=== PATIENT | female | born 1985 | race Two or more races ===

== ENCOUNTER 2017-06-10 08:00 | Emergency (ER) | payer MEDICAID ==
[~2017-06-10] VITALS: Ht 167.6 cm; Wt 108.9 kg
[2017-06-10] MEDS ORDERED: NKM (08:16)
[2017-06-10] MEDS ORDERED: Lidocaine 2% Visc 15ml soln ORAL ONE (08:45)
[2017-06-10] MEDS ORDERED: Mylanta II UD 30ml ORAL ONE (08:45)
[2017-06-10 08:59] LABS: BASOPHILS % (AUTO) 0.3 % (0.0-2.0); HEMATOCRIT 40.4 % (37.0-47.0); HEMOGLOBIN 14.1 G/DL (12.0-16.0); LYMPHOCYTES % (AUTO) 14.7 % (20.0-45.0); MEAN CORPUSCULAR VOLUME 91 FL (80-99); PLATELET COUNT 306 K/UL (150-450); RED BLOOD COUNT 4.43 M/UL (4.20-5.40); RED CELL DISTRIBUTION WIDTH 12.3 % (11.6-14.8); WHITE BLOOD COUNT 8.7 K/UL (4.8-10.8)
[2017-06-10] MEDS ORDERED: Ketorolac 30mg Inj IV ONE (09:00)
[2017-06-10 09:01] VITALS: BP 122/74
[2017-06-10 09:05] LABS: APPEARANCE,URINE CLEAR; BILIRUBIN, URINE NEGATIVE (NEGATIVE); GLUCOSE, URINE (UA) NEGATIVE (NEGATIVE); KETONES,URINE 2+ (NEGATIVE); LEUKOCYTE ESTERASE ,URINE 2+ (NEGATIVE); NITRITE,URINE NEGATIVE (NEGATIVE); PH,URINE 7 (4.5-8.0); PROTEIN,URINE 3+ (NEGATIVE); UROBILINOGEN,URINE 1 MG/DL (0.0-1.0)
[2017-06-10 09:13] LABS: ANION GAP 13 mmol/L (5-15); BLOOD UREA NITROGEN 10 mg/dL (7-18); CALCIUM 9.3 MG/DL (8.5-10.1); CARBON DIOXIDE 25 MMOL/L (21-32); CHLORIDE 103 MMOL/L (98-107); CREATININE 0.8 MG/DL (0.55-1.30); POTASSIUM 3.1 MMOL/L (3.5-5.1); SODIUM 140 MMOL/L (136-145)
[2017-06-10 09:15] LABS: ALANINE AMINOTRANSFERASE 23 U/L (12-78); ALBUMIN 3.8 G/DL (3.4-5.0); ALBUMIN/GLOBULIN RATIO 0.9 (1.0-2.7); ALKALINE PHOSPHATASE 96 U/L (46-116); ASPARTATE AMINO TRANSFERASE 10 U/L (15-37); BILIRUBIN,TOTAL 0.3 MG/DL (0.2-1.0)
[2017-06-10 09:19] LABS: COLOR,URINE YELLOW
--- NOTE | 2017-06-10 09:20 | Emergency Room Report ---
History of Present Illness General Chief Complaint: Abdominal Pain Source: Patient Present Illness HPI This patient has several complaints. The patient states that she has had some dysuria for about a week. She states that over the past few days she has developed upper back pain on both sides of her back. She states she's also had subjective fever and chills. She has had multiple episodes of nausea and vomiting this morning. She states she also has developed upper abdominal pain. She states that she hasn't had a bowel movement in 2 days and feels very "full." She states that her last menstrual period was 3 months ago. She states that she is irregular and this is typical for her. She does use condoms as a form of control. She denies chest pain or shortness of breath. She denies cough or congestion. She denies headache or neck pain. She has no other complaints. Allergies: Coded Allergies: No Known Allergies (Unverified , 06/10/17) Patient History Past Medical History: none, see triage record Past Surgical History: none Social History: Denies: smoking, alcohol use, drug use Last Menstrual Period: Three months ago - irregular Reviewed Nursing Documentation: PMH: Agreed, PSxH: Agreed Nursing Documentation-PMH Past Medical History: No Stated History Review of Systems All Other Systems: negative except mentioned in HPI Physical Exam Vital Signs Date Time Temp Pulse Resp B/P (MAP) Pulse Ox O2 Delivery O2 Flow Rate FiO2 06/10/17 08:09 84 20 127/67 99 Room Air Sp02 EP Interpretation: reviewed, normal General Appearance: no apparent distress, alert, GCS 15, non-toxic Head: normocephalic, atraumatic Eyes: bilateral eye normal inspection, bilateral eye PERRL ENT: hearing grossly normal, normal pharynx, no angioedema, normal voice Neck: full range of motion, supple/symm/no masses Respiratory: chest non-tender, lungs clear, normal breath sounds, speaking full sentences Cardiovascular #1: regular rate, rhythm, no edema Gastrointestinal: normal bowel sounds, soft, non-distended, no guarding, no rebound, tenderness - TTP in the epigastrium and RUQ. Rectal: deferred Genitourinary: CVA tenderness (R), CVA tenderness (L) Musculoskeletal: back normal, gait/station normal, normal range of motion, non- tender Neurologic: alert, oriented x3, responsive, motor strength/tone normal, sensory intact, speech normal Psychiatric: judgement/insight normal, memory normal, mood/affect normal, no suicidal/homicidal ideation Skin: normal color, no rash, warm/dry, well hydrated Medical Decision Making Diagnostic Impression: Primary Impression: Cholelithiasis ER Course This patient had several different complaints. She had bilateral flank pain concerning for pyelonephritis. She underwent a urinalysis which showed no e/o UTI. She also complained of upper abdominal pain consistent with gastritis or gallbladder disease. To further investigate this she underwent laboratory workup to include CBC, CMP and lipase which showed no acute findings. Specifically normal WBC, LFT's and lipase. She also underwent right upper quadrant ultrasound which showed cholelithasis w/o cholecystitis. The electronic systems security assessment did note sonographic Cruz sign. However, this patient had significant improvement and was nontender on repeat assessment and reexamination. I do not suspect that this patient has acute cholecystitis at this time. Although, she was educated that this could develop or progress and that she may need to return to undergo cholecystectomy. She was given a GI cocktail to include Mylanta and viscous lidocaine. She was given IV Pepcid. She was also given Toradol and morphine for pain relief. The patient had significant improvement during her ED course. Likely this patient is having biliary colic. There is no evidence of cholecystitis or choledocholithiasis. I did educate the patient that she may continue to have symptoms and end up having her gallbladder removed. She was educated on a proper low-fat diet. She was educated on followup instructions and return precautions. Laboratory Tests Test 06/10/17 08:34 White Blood Count 8.7 K/UL (4.8-10.8) Red Blood Count 4.43 M/UL (4.20-5.40) Hemoglobin 14.1 G/DL (12.0-16.0) Hematocrit 40.4 % (37.0-47.0) Mean Corpuscular Volume 91 FL (80-99) Mean Corpuscular Hemoglobin 31.9 PG (27.0-31.0) H Mean Corpuscular Hemoglobin Concent 34.9 G/DL (32.0-36.0) Red Cell Distribution Width 12.3 % (11.6-14.8) Platelet Count 306 K/UL (150-450) Mean Platelet Volume 5.5 FL (6.5-10.1) L Neutrophils (%) (Auto) 83.0 % (45.0-75.0) H Lymphocytes (%) (Auto) 14.7 % (20.0-45.0) L Monocytes (%) (Auto) 2.0 % (1.0-10.0) Eosinophils (%) (Auto) 0.0 % (0.0-3.0) Basophils (%) (Auto) 0.3 % (0.0-2.0) Urine Color Yellow Urine Appearance Clear Urine pH 7 (4.5-8.0) Urine Specific [place] 1.015 (1.005-1.035) Urine Protein 3+ (NEGATIVE) H Urine Glucose (UA) Negative (NEGATIVE) Urine Ketones 2+ (NEGATIVE) H Urine Occult Blood 5+ (NEGATIVE) H Urine Nitrite Negative (NEGATIVE) Urine Bilirubin Negative (NEGATIVE) Urine Urobilinogen 1 MG/DL (0.0-1.0) H Urine Leukocyte Esterase 2+ (NEGATIVE) H Urine RBC 5-10 /HPF (0 - 2) H Urine WBC 2-4 /HPF (0 - 2) Urine Squamous Epithelial Cells Moderate /LPF (NONE/OCC) H Urine Bacteria Few /HPF (NONE) Urine Mucus Few /LPF (NONE/OCC) H Urine HCG, Qualitative Negative Sodium Level 140 MMOL/L (136-145) Potassium Level 3.1 MMOL/L (3.5-5.1) L Chloride Level 103 MMOL/L (98-107) Carbon Dioxide Level 25 MMOL/L (21-32) Anion Gap 13 mmol/L (5-15) Blood Urea Nitrogen 10 mg/dL (7-18) Creatinine 0.8 MG/DL (0.55-1.30) Estimate Glomerular Filtration Rate > 60 mL/min (>60) Glucose Level 138 MG/DL (74-106) H Calcium Level 9.3 MG/DL (8.5-10.1) Total Bilirubin 0.3 MG/DL (0.2-1.0) Aspartate Amino Transferase (AST) 10 U/L (15-37) L Alanine Aminotransferase (ALT) 23 U/L (12-78) Alkaline Phosphatase 96 U/L (46-116) Total Protein 7.8 G/DL (6.4-8.2) Albumin 3.8 G/DL (3.4-5.0) Globulin 4.0 g/dL Albumin/Globulin Ratio 0.9 (1.0-2.7) L Lipase 105 U/L (73-393) CT/MRI/US Diagnostic Results CT/MRI/US Diagnostic Results : Imaging Test Ordered: US RUQ Impression The patient had significant improvement during her ED course. Likely this patient is having biliary colic. There is no evidence of cholecystitis or choledocholithiasis. I did educate the patient that she may continue to have symptoms and end up having her gallbladder removed. She was educated on a proper low-fat diet. She was educated on followup instructions and return precautions. Last Vital Signs Date Time Temp Pulse Resp B/P (MAP) Pulse Ox O2 Delivery O2 Flow Rate FiO2 06/10/17 09:01 75 18 122/74 100 Room Air Disposition: HOME, SELF-CARE Condition: Improved Referrals: NOT CHOSEN IPA/MD,REFERRING (PCP) Patient Instructions: Cholelithiasis, [id number] NORA BEARD D.O. Jun 10, 2017 09:20
[2017-06-10] MEDS ORDERED: Morphine Sulfate 4mg/ml Inj IVP ONE (10:00)
--- NOTE | 2017-06-10 10:31 | Diagnostic Imaging Report ---
Indication: Epigastric pain radiating to right shoulder Technique: Townsend-scale and duplex images of the upper abdomen were obtained Comparison: none Findings: Gallbladder is distended, demonstrates gallstones. No gallbladder wall thickening or pericholecystic fluid. Sonographic Cruz sign is positive, per technologist Common bile duct measures 7 mm in diameter. No intrahepatic biliary ductal dilatation. Liver demonstrates normal echogenicity, no focal abnormality. Portal vein and hepatic veins are patent. Pancreas is incompletely visualized due to overlying bowel gas. Spleen is unremarkable. Left kidney is not well-visualized, measures 10 cm in length. Right kidney measures 13.5 cm length. Right kidney demonstrates normal echogenicity. Left kidney demonstrates increased echogenicity. There is no hydronephrosis. Left kidney demonstrates multiple cysts . Abdominal aorta is partially obscured by bowel gas, visualized portions are non-aneurysmal . Impression: Cholelithiasis. Positive sonographic Cruz's sign raises concern for acute cholecystitis. Consider nuclear medicine hepatobiliary scan for further evaluation if clinically indicated Mildly ectatic common bile duct. Downstream obstruction not completely exclude a. Correlate with liver function tests Echogenic left kidney, could indicate medical renal disease. Note that the left kidney is not optimally visualized visualized portions are unremarkable Suboptimal visualization of the pancreas and abdominal aorta Incidental finding left renal cysts
[2017-06-10] MEDS ORDERED: NORCO 5-325 TA1 EACH ORAL (11:08)
[2017-06-10] MEDS ORDERED: ZOFRAN ODT4 MG ORAL (11:08)
[2017-06-10] MEDS ORDERED: IBUPROFEN600 MG ORAL (11:08)
[2017-06-10 11:17] VITALS: BP 122/74
== END 2017-06-10 11:20 | disposition home or self-care (01) ==
LOC: EMR 08:38
DX: K80.20 Calculus of gallbladder without cholecystitis without obstruction (principal)
CPT/HCPCS: 36415; 76700; 80053; 81003; 81025; 83690; 85025; 96361; 96374; 96375; 99284; J1885; J2270; J2405; S0028

== ENCOUNTER 2017-06-21 10:27 | Emergency (ER) | payer MEDICAID ==
[~2017-06-21] VITALS: Ht 160 cm; Wt 90.7 kg
[~2017-06-21 10:27] MED LIST: IBUPROFEN600 MG ORAL; NKM; NORCO 5-325 TA1 EACH ORAL; ZOFRAN ODT4 MG ORAL
[2017-06-21] MEDS ORDERED: Sodium Chloride 500ML 500 ML IV ONE (10:47)
[2017-06-21 10:49] VITALS: BP 103/73
[2017-06-21 10:59] LABS: APPEARANCE,URINE CLEAR; BILIRUBIN, URINE NEGATIVE (NEGATIVE); GLUCOSE, URINE (UA) NEGATIVE (NEGATIVE); KETONES,URINE NEGATIVE (NEGATIVE); LEUKOCYTE ESTERASE ,URINE 2+ (NEGATIVE); NITRITE,URINE NEGATIVE (NEGATIVE); PH,URINE 5 (4.5-8.0); PROTEIN,URINE 1+ (NEGATIVE); UROBILINOGEN,URINE 1 MG/DL (0.0-1.0)
[2017-06-21 11:10] LABS: COLOR,URINE YELLOW
[2017-06-21 11:14] LABS: BASOPHILS % (AUTO) 0.6 % (0.0-2.0); EOSINOPHILS % (AUTO) 1.1 % (0.0-3.0); HEMATOCRIT 38.9 % (37.0-47.0); HEMOGLOBIN 13.7 G/DL (12.0-16.0); LYMPHOCYTES % (AUTO) 26.1 % (20.0-45.0); MEAN CORPUSCULAR VOLUME 90 FL (80-99); MONOCYTES % (AUTO) 3.5 % (1.0-10.0); NEUTROPHILS % (AUTO) 68.7 % (45.0-75.0); PLATELET COUNT 364 K/UL (150-450); RED BLOOD COUNT 4.32 M/UL (4.20-5.40); WHITE BLOOD COUNT 8.9 K/UL (4.8-10.8)
[2017-06-21 11:50] LABS: ANION GAP 8 mmol/L (5-15); BLOOD UREA NITROGEN 9 mg/dL (7-18); CALCIUM 9.7 MG/DL (8.5-10.1); CARBON DIOXIDE 29 MMOL/L (21-32); CHLORIDE 103 MMOL/L (98-107); CREATININE 0.8 MG/DL (0.55-1.30); POTASSIUM 3.7 MMOL/L (3.5-5.1); SODIUM 140 MMOL/L (136-145)
[2017-06-21 11:55] LABS: ALANINE AMINOTRANSFERASE 51 U/L (12-78); ALBUMIN 3.5 G/DL (3.4-5.0); ALBUMIN/GLOBULIN RATIO 0.8 (1.0-2.7); ALKALINE PHOSPHATASE 103 U/L (46-116); ASPARTATE AMINO TRANSFERASE 51 U/L (15-37); BILIRUBIN,TOTAL 0.4 MG/DL (0.2-1.0)
[2017-06-21] MEDS ORDERED: Morphine Sulfate 4mg/ml Inj IVP ONE (12:15)
[2017-06-21 12:20] VITALS: BP 96/57
[2017-06-21] MEDS ORDERED: NORCO 5-325 TA1 EACH ORAL (13:09)
[2017-06-21] MEDS ORDERED: IBUPROFEN600 MG ORAL (13:09)
[2017-06-21] MEDS ORDERED: ZOFRAN ODT4 MG ORAL (13:09)
[2017-06-21 13:19] VITALS: BP 118/83
--- NOTE | 2017-06-21 14:35 | Emergency Room Report ---
History of Present Illness General Chief Complaint: Abdominal Pain Source: Patient Present Illness HPI 32-year-old female presents to ED for evaluation. Patient complaint abdominal pain starting 2 days ago. Right upper quadrant/epigastric. Sharp, 8/10, radiating to back. Denies chest pain or shortness of breath. Notes nausea and vomiting. Was seen here earlier this month for similar presentation. Noted to have gallstones. Denies dysuria or hematuria. No other aggravating relieving factors. Denies any other associated symptoms Allergies: Coded Allergies: No Known Allergies (Unverified , 06/10/17) Patient History Past Medical History: none Past Surgical History: none Pertinent Family History: none Social History: Denies: smoking, alcohol use, drug use Last Menstrual Period: 4 months ago/ irregular period Now: No Immunizations: UTD Reviewed Nursing Documentation: PMH: Agreed, PSxH: Agreed Nursing Documentation-PMH Past Medical History: No History, Except For Review of Systems All Other Systems: negative except mentioned in HPI Physical Exam Vital Signs Date Time Temp Pulse Resp B/P (MAP) Pulse Ox O2 Delivery O2 Flow Rate FiO2 06/21/17 10:30 97.7 86 16 103/73 95 Room Air 97.7 Sp02 EP Interpretation: reviewed, normal General Appearance: no apparent distress, alert, GCS 15, non-toxic, mild distress, obese Head: normocephalic, atraumatic Eyes: bilateral eye normal inspection, bilateral eye PERRL ENT: hearing grossly normal, normal pharynx, no angioedema, normal voice Neck: full range of motion, supple/symm/no masses Respiratory: chest non-tender, lungs clear, normal breath sounds, speaking full sentences Cardiovascular #1: regular rate, rhythm, no edema Cardiovascular #2: 2+ carotid (R), 2+ carotid (L), 2+ radial (R), 2+ radial (L) , 2+ dorsalis pedis (R), 2+ dorsalis pedis (L) Gastrointestinal: normal bowel sounds, soft, non-distended, no guarding, no rebound, tenderness - RUQ Rectal: deferred Genitourinary: normal inspection, no CVA tenderness Musculoskeletal: back normal, gait/station normal, normal range of motion, non- tender Neurologic: alert, oriented x3, responsive, motor strength/tone normal, sensory intact, speech normal Psychiatric: judgement/insight normal, memory normal, mood/affect normal, no suicidal/homicidal ideation Reflexes: 3+ bicep (R), 3+ bicep (L), 3+ tricep (R), 3+ tricep (L), 3+ knee (R) , 3+ knee (L) Skin: normal color, no rash, warm/dry, well hydrated Lymphatic: no adenopathy Medical Decision Making Diagnostic Impression: Primary Impression: Biliary colic ER Course Hospital Course 32-year-old F presents to ED with abdominal pain Differential diagnosis includes-appendicitis, cholecystitis, small bowel obstruction, gastritis, Clinical course Patient placed on stretcher. After initial history and physical I ordered labs , IV fluids, pain medications and Abd US Labs - no leukocytosis, electrolytes ok, LFTs normal, UA unremarkable ABD US - gallbladder full of stones. No pericholecystic fluid., CBD dilated Reviewed EMR. Ultrasound essentially unchanged from prior visit. No evidence of cholecystitis Discussed findings with patient. I believe patient can be discharged. Recommend followup with surgery as outpatient for elective removal of gallbladder I feel this is a highly complex case requiring extensive working including EKG/ Rhythm strip, Xray/CT/US, Blood/urine lab work, repeat exams while in ED, and administration of strong opiates/narcotics for pain control, admission to hospital or close patient follow up. Diagnosis - biliary colic Stable and discharged to home with Rx Longs, Motrin, Zofran. Followup with PMD. Return to ED if symptoms recur or worsen Labs Test 06/21/17 10:41 06/21/17 10:55 Urine Color Yellow Urine Appearance Clear Urine pH 5 (4.5-8.0) Urine Specific [place] 1.025 (1.005-1.035) Urine Protein 1+ (NEGATIVE) Urine Glucose (UA) Negative (NEGATIVE) Urine Ketones Negative (NEGATIVE) Urine Occult Blood 3+ (NEGATIVE) Urine Nitrite Negative (NEGATIVE) Urine Bilirubin Negative (NEGATIVE) Urine Urobilinogen 1 MG/DL (0.0-1.0) Urine Leukocyte Esterase 2+ (NEGATIVE) Urine RBC 2-4 /HPF (0 - 2) Urine WBC 5-10 /HPF (0 - 2) Urine Squamous Epithelial Cells Moderate /LPF (NONE/OCC) Urine Bacteria Few /HPF (NONE) Urine HCG, Qualitative Negative White Blood Count 8.9 K/UL (4.8-10.8) Red Blood Count 4.32 M/UL (4.20-5.40) Hemoglobin 13.7 G/DL (12.0-16.0) Hematocrit 38.9 % (37.0-47.0) Mean Corpuscular Volume 90 FL (80-99) Mean Corpuscular Hemoglobin 31.8 PG (27.0-31.0) Mean Corpuscular Hemoglobin Concent 35.3 G/DL (32.0-36.0) Red Cell Distribution Width 12.0 % (11.6-14.8) Platelet Count 364 K/UL (150-450) Mean Platelet Volume 5.4 FL (6.5-10.1) Neutrophils (%) (Auto) 68.7 % (45.0-75.0) Lymphocytes (%) (Auto) 26.1 % (20.0-45.0) Monocytes (%) (Auto) 3.5 % (1.0-10.0) Eosinophils (%) (Auto) 1.1 % (0.0-3.0) Basophils (%) (Auto) 0.6 % (0.0-2.0) Sodium Level 140 MMOL/L (136-145) Potassium Level 3.7 MMOL/L (3.5-5.1) Chloride Level 103 MMOL/L (98-107) Carbon Dioxide Level 29 MMOL/L (21-32) Anion Gap 8 mmol/L (5-15) Blood Urea Nitrogen 9 mg/dL (7-18) Creatinine 0.8 MG/DL (0.55-1.30) Estimat Glomerular Filtration Rate > 60 mL/min (>60) Glucose Level 114 MG/DL (74-106) Calcium Level 9.7 MG/DL (8.5-10.1) Total Bilirubin 0.4 MG/DL (0.2-1.0) Aspartate Amino Transf (AST/SGOT) 51 U/L (15-37) Alanine Aminotransferase (ALT/SGPT) 51 U/L (12-78) Alkaline Phosphatase 103 U/L (46-116) Total Protein 7.7 G/DL (6.4-8.2) Albumin 3.5 G/DL (3.4-5.0) Globulin 4.2 g/dL Albumin/Globulin Ratio 0.8 (1.0-2.7) Lipase 148 U/L (73-393) CT/MRI/US Diagnostic Results CT/MRI/US Diagnostic Results : Imaging Test Ordered: ABD US Impression gallstones. no pericholecystic fluid. CBD dilated Last Vital Signs Date Time Temp Pulse Resp B/P (MAP) Pulse Ox O2 Delivery O2 Flow Rate FiO2 06/21/17 13:19 97.4 67 18 118/83 99 Room Air Status: improved Disposition: HOME, SELF-CARE Condition: Stable Scripts Ondansetron Odt* (ZOFRAN ODT*) 4 Mg Tab.rapdis 4 MG ORAL Q6H Y for Nausea & Vomiting, #30 TAB 0 Refills Prov: DIO FUNEZ M.D. 06/21/17 Hydrocodone Bit/Acetaminophen 5-325* (NORCO 5-325*) 1 Each Tablet 1 TAB ORAL Q6H Y for For Pain, #10 TAB 0 Refills Prov: DIO FUNEZ M.D. 06/21/17 Ibuprofen* (MOTRIN*) 600 Mg Tablet 600 MG ORAL Q8H Y for For Pain, #30 TAB 0 Refills Prov: DIO FUNEZ M.D. 06/21/17 Patient Instructions: Biliary Colic DIO FUNEZ M.D. Jun 21, 2017 14:34
--- NOTE | 2017-06-22 11:15 | Diagnostic Imaging Report ---
Indication:Abdominal pain Technique: Grayscale and duplex Doppler imaging of the abdomen performed. Comparison: None Findings: Aorta appears normal caliber. Liver is relatively normal in size. Gallstone noted. Main portal vein is patent with Doppler flow. CBD is 10 mm which is prominent. Further evaluation suggested as warranted clinically. The right kidney is grossly unremarkable. There is no hydronephrosis. There is no splenomegaly or free fluid. The left kidney is poorly seen. IMPRESSION: Cholelithiasis. Prominent CBD. Further evaluation with MRCP may be indicated. Please correlate clinically and if evaluated further as needed. Left kidney poorly seen on this study.
== END 2017-06-21 13:20 | disposition home or self-care (01) ==
LOC: EMR 10:50 → CANBEDREQ 12:53 → EMR 13:20
DX: K80.20 Calculus of gallbladder without cholecystitis without obstruction (principal)
CPT/HCPCS: 36415; 76700; 80053; 81003; 81025; 83690; 85025; 96361; 96374; 99284; J2270

== ENCOUNTER 2018-05-03 13:41 | Emergency (ER) | payer MEDICAID ==
[~2018-05-03] VITALS: Ht 167.6 cm; Wt 90.7 kg
--- NOTE | 2018-05-03 13:50 | NUR ---
ED Nurse Note: Patient walked in to ER with daughter as roving winder as c/o sore throat and flu like symptom. Per pt, she had flu vaccine this year. AAO x4 somali speaker, VS stable, Lung sounds clear but weak cought and clear sputum present. Remaining calm and cooperative.
[2018-05-03 14:08] VITALS: BP 115/66
[2018-05-03] MEDS ORDERED: TYLENOL COLD &1 EAC1 PO (14:22)
[2018-05-03 14:45] VITALS: BP 132/77
--- NOTE | 2018-05-03 14:45 | NUR ---
ED Nurse Note: Patient received discharge instruction and prescription. Pt demonstrated fair level of understanding. Pt ambulated out in stable condition with family member.
--- NOTE | 2018-05-03 16:22 | Emergency Room Report ---
History of Present Illness General Chief Complaint: Flu Like Symptoms Source: Patient Present Illness HPI 32-year-old female presents ED for evaluation. Patient complaining of sore throat, runny nose, body aches and cough for the last 3 days. Afebrile. Pain is dull, 5 out of 10, nonradiating. States she had a flu shot this year. Denies sick contacts or recent travel. Denies nausea or vomiting. No other aggravating relieving factors. Denies any other associated symptoms Allergies: Coded Allergies: No Known Allergies (Unverified , 05/03/18) Patient History Past Medical History: none Past Surgical History: none Pertinent Family History: none Social History: Denies: smoking, alcohol use, drug use Last Menstrual Period: 04/18/2018 Now: No : 3 Para: 3 Immunizations: UTD Reviewed Nursing Documentation: PMH: Agreed; PSxH: Agreed Nursing Documentation-PMH Past Medical History: No Stated History Review of Systems All Other Systems: negative except mentioned in HPI Physical Exam Vital Signs Date Time Temp Pulse Resp B/P (MAP) Pulse Ox O2 Delivery O2 Flow Rate FiO2 05/03/18 14:05 98.1 68 18 115/66 96 Room Air Sp02 EP Interpretation: reviewed, normal General Appearance: no apparent distress, alert, GCS 15, non-toxic Head: normocephalic, atraumatic Eyes: bilateral eye normal inspection, bilateral eye PERRL ENT: hearing grossly normal, normal pharynx, no angioedema, normal voice Neck: full range of motion, supple/symm/no masses Respiratory: chest non-tender, lungs clear, normal breath sounds, speaking full sentences Cardiovascular #1: regular rate, rhythm, no edema Cardiovascular #2: 2+ carotid (R), 2+ carotid (L), 2+ radial (R), 2+ radial (L) , 2+ dorsalis pedis (R), 2+ dorsalis pedis (L) Gastrointestinal: normal bowel sounds, non tender, soft, non-distended, no guarding, no rebound Rectal: deferred Genitourinary: normal inspection, no CVA tenderness Musculoskeletal: back normal, gait/station normal, normal range of motion, non- tender Neurologic: alert, oriented x3, responsive, motor strength/tone normal, sensory intact, speech normal Psychiatric: judgement/insight normal, memory normal, mood/affect normal, no suicidal/homicidal ideation Reflexes: 3+ bicep (R), 3+ bicep (L), 3+ tricep (R), 3+ tricep (L), 3+ knee (R) , 3+ knee (L) Skin: normal color, no rash, warm/dry, well hydrated Lymphatic: no adenopathy Medical Decision Making Diagnostic Impression: Primary Impression: Upper respiratory infection Qualified Codes: J06.9 - Acute upper respiratory infection, unspecified ER Course Hospital Course 32-year-old female presents to ED complaining of cough, runny nose with bodyaches Differential diagnoses include: URI, pharyngitis, otitis media, asthma Clinical course Patient placed on stretcher. After initial history, physical exam reveals a female in no acute distress. Bilateral TM unremarkable. No pharyngeal erythema. No tonsillar exudates. No lymphadenopathy. lungs clear. abdomen soft. Clinical findings consistent with URI. Discussed findings with patient. Patient is afebrile. Vital stable. Received flu shot this year. Course is self-limited. Safe for discharge close outpatient follow-up. We'll provide PMD/clinic referrals Diagnosis - URI Stable and discharged home with Rx Tylenol multisymptom. Instructed to followup with PMD. Return to ED if symptoms recur or worsen Last Vital Signs Date Time Temp Pulse Resp B/P (MAP) Pulse Ox O2 Delivery O2 Flow Rate FiO2 05/03/18 14:45 98.2 75 15 132/77 98 Room Air Status: improved Disposition: HOME, SELF-CARE Condition: Stable Scripts Phenylephrine/Dm/Acetaminop/Gg (TYLENOL COLD & FLU SEVERE CPLT) 1 Each Tablet 1 EACH PO Q6HR for 10 Days, TAB Prov: Jamel Aguilar MD 05/03/18 Referrals: NOT CHOSEN IPA/,REFERRING (PCP) [facility] Patient Instructions: Upper Respiratory Infection, Adult, [id number] Jamel Aguilar MD May 03, 2018 16:22
== END 2018-05-03 14:45 | disposition home or self-care (01) ==
LOC: EMR 14:18
DX: J06.9 Acute upper respiratory infection, unspecified (principal); R51 Headache
CPT/HCPCS: 99282